=== PATIENT | male | born 1965 | race Caucasian/White ===

== ENCOUNTER 2018-06-19 06:44 | Day surgery (SDC) | payer OTHER ==
[2018-06-19 10:20] VITALS: BP 117/70
== END 2018-06-19 10:53 | DRG 352 ==
LOC: ORM 06:44
PROVIDERS: ATTEND Surgery
PROC: 0WUF0JZ Supplement Abdominal Wall with Synthetic Substitute, Open Approach (ICD-10-PCS; principal; 2018-06-19)
PROC: 0YU50JZ Supplement Right Inguinal Region with Synthetic Substitute, Open Approach (ICD-10-PCS; 2018-06-19)
DX: K40.90 Unilateral inguinal hernia, without obstruction or gangrene, not specified as recurrent (principal); K43.9 Ventral hernia without obstruction or gangrene
CPT/HCPCS: C9290; J0131; J2710